=== PATIENT | male | born 1970 | race Caucasian/White ===

== ENCOUNTER 2019-02-17 21:10 | Emergency (ER) | payer MEDICAID, MEDICARE ==
[2019-02-17 21:31] VITALS: BP 150/97; PULSE 99
--- NOTE | 2019-02-17 21:55 | EDM.PDOC ---
ED HPI GENERAL MEDICAL PROBLEM - General Chief Complaint: Skin Complaint Stated Complaint: INFECTION ON LEG BUMP Time Seen by Provider: 02/17/19 21:40 Source of Information: Reports: Patient, Old Records, RN History Limitations: Reports: No Limitations - History of Present Illness INITIAL COMMENTS - FREE TEXT/NARRATIVE: 49 yo male here with a red lump on his R medial thigh for the past couple of days. Decided tonight to come and have it checked out. Has not seen his doctor about this. Onset: Gradual Onset Date: 02/15/19 Duration: Day(s): (2), Constant Location: Reports: Lower Extremity, Right Quality: Reports: Dull Severity: Mild Improves with: Reports: None Worsens with: Reports: None Context: Reports: Other Associated Symptoms: Reports: No Other Symptoms Treatments DIRECT MARKETING SPECIALIST: Reports: Other (see below) (none) rt thigh lump Pain Score (Numeric/FACES): 2 - Related Data Allergies Allergy/AdvReac Type Severity Reaction Status Date / Time No Known Allergies Allergy Verified 02/06/15 22:00 Home Meds: Home Meds Amitriptyline [Elavil] 1 tab PO BEDTIME 02/17/19 [History] Cyclobenzaprine HCl 1 tab PO BEDTIME 02/17/19 [History] Gabapentin [Neurontin] 1 tab PO BID 02/17/19 [History] Varenicline [Chantix] 1 tab PO DAILY 02/17/19 [History] traMADol HCl [Tramadol HCl] 1 - 2 tab PO Q6H PRN 02/17/19 [History] Past Medical History Cardiovascular History: Reports: Other (See Below) Other Cardiovascular History: vericose veins Other Musculoskeletal History: fusion in neck, bone spur on 2nd vertebrae Neurological History: Reports: Headaches, Chronic Endocrine/Metabolic History: Reports: Obesity/BMI 30+ - Past Surgical History Cardiovascular Surgical History: Reports: None Social & Family History - Family History Family Medical History: Noncontributory - Tobacco Use Smoking Status *Q: Current Every Day Smoker Years of Tobacco use: 20 Packs/Tins Daily: 0.5 - Caffeine Use Caffeine Use: Reports: Coffee - Recreational Drug Use Recreational Drug Use: No ED ROS GENERAL - Review of Systems Review Of Systems: ROS reveals no pertinent complaints other than HPI. Constitutional: Reports: No Symptoms Skin: Reports: Erythema (area about 3 x 3 cm R medial thigh. ), Lumps ( underlying the red area.), Other (Has a large number of chronic varicose veins in the area. ) Neurological: Reports: No Symptoms ED EXAM, SKIN/RASH Exam: See Below Exam Limited By: No Limitations General Appearance: Alert, WD/WN, No Apparent Distress Extremities: Other (varicose veins to medial R thigh, one is inflamed and red, some tenderness. ) Neurological: Alert, Oriented, CN II-XII Intact, Normal Cognition, No Motor/ Sensory Deficits Psychiatric: Normal Affect, Normal Mood Skin: Warm, Dry, Intact, No Rash, Erythema (over varicosity medial R thigh.). No: Normal Color Course - Vital Signs Last Recorded V/S: Last Vital Signs Temp 35.8 C 02/17/19 21: Pulse 99 02/17/19 21:29 Resp 16 02/17/19 21: BP 150/97 H 02/17/19 21: Pulse Ox 98 02/17/19 21:29 Departure - Departure Time of Disposition: 21:55 Disposition: Home, Self-Care 01 Condition: Good Clinical Impression: Thrombophlebitis leg - Discharge Information *PRESCRIPTION DRUG MONITORING PROGRAM REVIEWED*: No *COPY OF PRESCRIPTION DRUG MONITORING REPORT IN PATIENT ELVA: No Instructions: Thrombophlebitis Referrals: Donte Edgar MD [Primary Care Provider] - Additional Instructions: Apply moist heat to area several times a day. Take either ibuprofen 600 mg every 6 hrs with food or Aleve(naproxen sodium) 220 mg (2) tabs every 8 hrs with food. Recheck with your provider if not improving.
== END 2019-02-17 22:19 | disposition home or self-care (01) ==
LOC: JP.ED 21:10
DX: I80.9 Phlebitis and thrombophlebitis of unspecified site (principal); E66.9 Obesity, unspecified; F17.210 Nicotine dependence, cigarettes, uncomplicated; Z68.39 Body mass index [BMI] 39.0-39.9, adult
CPT/HCPCS: 99282